=== PATIENT | female | born 1945 | race Caucasian/White ===

== ENCOUNTER → 2017-04-26 | Outpatient (CLI) | payer MEDICARE, OTHER ==
--- NOTE | 2017-04-26 20:57 | US ---
EXAMINATION TYPE: US abdomen complete DATE OF EXAM: 04/26/2017 COMPARISON: CT 2016 CLINICAL HISTORY: R10.2 pelvic and perineal pain. Intermittent pelvic burning sensation x 6 months, o ccasional N/V/D, history of cholecystectomy EXAM MEASUREMENTS: Liver Length: 16.5 cm Gallbladder Wall: surgically absent CBD: 0.4 cm Spleen: 9.7 cm Right Kidney: 11.7 x 5.2 x 5.9 cm Left Kidney: 11.7 x 5.5 x 5.5 cm Pancreas: obscured by overlying midline bowel gas Liver: increased echogenicity throughout, increased attenuation, limited by rib shadowing Gallbladder: surgically absent Evidence for sonographic Linares's sign: no CBD: visualized portions wnl, limited by overlying bowel gas Spleen: visualized portions wnl, limited by overlying bowel gas Right Kidney: 1.5 x 1.4 x 1.7cm cystic area inferior pole, 2.4cm cystic area mid pole, possible mild hydro vs. parapelvic cyst Left Kidney: no hydro or masses seen Upper IVC: wnl Abd Aorta: visualized portions wnl, partially obscured by overlying midline bowel gas IMPRESSION: 1. Exam limited due to patient body habitus and excessive bowel gas. 2. Limited portions visualized appear within normal limits. 3. Note is made of moderate fatty infiltration liver. 4. Mid right renal cyst.
--- NOTE | 2017-04-26 21:04 | US ---
EXAMINATION TYPE: US pelvis complete transvag DATE OF EXAM: 04/26/2017 COMPARISON: CT 2016 CLINICAL HISTORY: R10.2 pelvic and perineal pain. Intermittent pelvic burning sensation x couple femi hs, occasional N/V/D, history of tubal ligation, 3, para 3 TECHNIQUE: Transvaginal (TV) and Transabdominal (TA) Date of LMP: 20+ years ago EXAM MEASUREMENTS: Uterus: 5.6 x 2.5 x 3.6 cm Endometrial Stripe: 0.9 cm Right Ovary: not seen Left Ovary: not seen 1. Uterus: retroverted, heterogeneous with 1.0cm hypoechoic lesion seen left mid uterus and 0.5cm ec hogenic focus seen right mid uterus 2. Endometrium: heterogenous, thickened at 0.9cm 3. Right Ovary: not seen at this time 4. Left Ovary: not seen at this time 5. Bilateral Adnexa: wnl 6. Posterior cul-de-sac: wnl IMPRESSION: 1. Echogenic focus within the lateral right uterus could be a calcified fibroid. 2. Thickened endometrium.
== END | disposition home or self-care (01) ==
LOC: RADUSWWP 13:16
PROVIDERS: ATTEND Family Medicine
DX: N28.1 Cyst of kidney, acquired (principal); K76.0 Fatty (change of) liver, not elsewhere classified; R93.8 Abnormal findings on diagnostic imaging of other specified body structures
CPT/HCPCS: 76700; 76830; 76856

== ENCOUNTER 2020-09-24 17:04 | Inpatient (IN) | payer MEDICARE, OTHER ==
[2020-09-24] MEDS ORDERED: SODIUM CHLORIDE 0.9% 1,000 ML IV ONE (17:31)
[2020-09-24] MEDS ORDERED: ACETAMINOPHEN TAB 500 MG TAB PO STA (17:32)
--- NOTE | 2020-09-24 17:32 | ED ---
General Adult HPI - General Chief complaint: Abdominal Pain Stated complaint: abd pain Time Seen by Provider: 09/24/20 17:17 Source: patient, RN notes reviewed, old records reviewed Mode of arrival: ambulatory Limitations: no limitations - History of Present Illness Initial comments: 74-year-old female presenting with abdominal pain, predominantly left lower quadrant. This is been present for the past several days. She has noted fever at home. She's had significant nausea without vomiting. She has a previous surgical history of cholecystectomy. She has had a normal bowel movement no diarrhea. She has history of irritable bowel syndrome as well. - Related Data Home Medications Medication Instructions Recorded Confirmed Amitriptyline HCl 50 mg PO HS 06/16/15 09/24/20 Aspirin EC [Ecotrin Low Dose] 81 mg PO HS 09/24/20 09/24/20 Carboxymethylcell/Glycerin/Pf 1 drop BOTH EYES TID 09/24/20 09/24/20 [Refresh Relieva Pf 0.5-1% Drop] Cholecalciferol [Vitamin D3 (25 25 mcg PO HS 09/24/20 09/24/20 Mcg = 1000 Iu)] Cyanocobalamin (Vitamin B-12) 1,000 mcg PO DAILY 09/24/20 09/24/20 [Vitamin B-12] INSULIN ASPART (NovoLOG) [NovoLOG See Protocol SQ AC-TID 09/24/20 09/24/20 (formulary)] Insulin Degludec [Tresiba 50 units SQ HS 09/24/20 09/24/20 Flextouch U-100] Ketorolac 0.5% Ophth Soln [Acular] 1 drops BOTH EYES DAILY 09/24/20 09/24/20 Latanoprost/Pf [Latanoprost 0.005% 1 drop BOTH EYES HS 09/24/20 09/24/20 Eye Drop] Omeprazole 20 mg PO DAILY PRN 09/24/20 09/24/20 [id number] Acid 1 cap PO DAILY 09/24/20 09/24/20 [-U Capsule (formulary)] Turmeric Root Extract [Turmeric] 500 mg PO DAILY 09/24/20 09/24/20 hydroCHLOROthiazide [Hydrodiuril] 12.5 mg PO HS 09/24/20 09/24/20 Allergies Allergy/AdvReac Type Severity Reaction Status Date / Time cephalexin monohydrate Allergy Unknown Verified 09/24/20 18:45 [From Keflex] codeine Allergy Unknown Verified 09/24/20 18:45 rofecoxib [From Vioxx] Allergy Unknown Verified 09/24/20 18:45 Review of Systems ROS Statement: Those systems with pertinent positive or pertinent negative responses have been documented in the HPI. ROS Other: All systems not noted in ROS Statement are negative. Past Medical History Past Medical History: Diabetes Mellitus, Fibromyalgia, GERD/Reflux, Hyperlipidemia, Hypertension Additional Past Medical History / Comment(s): 06/15/14 Pt presented to [facility] ER with diffuse abdominal pain, nausea/vomiting/weakness. Ptin was suprapubic. Pt had blood in her urine. She saw her PCP yesterday and was tx for UTI. She is being admitted with dehydration, UTI failed outpt tx, hypomagnesemia, hyponatremia, malnutrition. Other HX: NIDDM, hiatal hernia, bronchitis, kidney stones, past endometriosis-no longer a problem. History of Any Multi-Drug Resistant Organisms: None Reported Past Surgical History: Cholecystectomy, Tubal Ligation Additional Past Surgical History / Comment(s): 2005 EGD Past Anesthesia/Blood Transfusion Reactions: No Reported Reaction Past Psychological History: No Psychological Hx Reported Smoking Status: Never smoker Past Alcohol Use History: None Reported Past Drug Use History: None Reported - Past Family History Father Family Medical History: Cancer Additional Family Medical History / Comment(s): Father had esophageal cancer and at age 84 or 85 yrs. Mother Family Medical History: Congestive Heart Failure (CHF), Diabetes Mellitus Additional Family Medical History / Comment(s): Mother at age 86 yrs. General Exam Limitations: no limitations General appearance: alert, in no apparent distress Head exam: Present: atraumatic, normocephalic Eye exam: Present: normal appearance, PERRL ENT exam: Present: normal exam Neck exam: Present: normal inspection. Absent: tenderness, meningismus Respiratory exam: Present: normal lung sounds bilaterally. Absent: respiratory distress Cardiovascular Exam: Present: regular rate, normal rhythm GI/Abdominal exam: Present: soft, tenderness (Minimal bilateral lower quadrant tenderness, worse on the left, no rebound or guarding). Absent: distended Extremities exam: Present: normal inspection, normal capillary refill. Absent: pedal edema Back exam: Present: normal inspection, full ROM Neurological exam: Present: alert, oriented X3 Psychiatric exam: Present: normal affect, normal mood Skin exam: Present: warm, dry, intact. Absent: cyanosis, diaphoretic Course Vital Signs 09/24/20 09/24/20 09/24/20 17:12 18:14 19:27 Temperature 103.0 F H 101.1 F H Pulse Rate 100 91 Respiratory 18 18 Rate Blood Pressure 147/70 146/61 O2 Sat by Pulse 97 96 Oximetry Medical Decision Making - Medical Decision Making 74-year-old female with abdominal pain and fever. Patient is tender in the left lower quadrant and some minimal tenderness in the right lower quadrant. Workup is initiated. Patient has a normal white blood cell count, stable hemoglobin, normal electrolytes, urinalysis to show signs of UTI although probably not significant enough to cause fever of 103. CT shows diverticulosis without diverticulitis, there is trace amount of free fluid on the right side of the abdomen. Normal appendix. Uncertain if there is an early intra-abdominal infectious process however patient is started on antibiotics and will be admitted to internal medicine with general surgery on consult. I discussed case with both Dr. Shaikh and Dr. Hoffmann. - Lab Data Result diagrams: 09/24/20 17:32 09/24/20 17:32 Lab Results 09/24/20 09/24/20 09/24/20 Range/Units 17:32 17:32 17:32 WBC 4.6 (3.8-10.6) k/uL RBC 4.86 (3.80-5.40) m/uL Hgb 14.6 (11.4-16.0) gm/dL Hct 41.5 (34.0-46.0) % MCV 85.3 (80.0-100.0) fL MCH 29.9 (25.0-35.0) pg MCHC 35.1 (31.0-37.0) g/dL RDW 12.7 (11.5-15.5) % Plt Count 170 (150-450) k/uL MPV 7.3 Neutrophils % 68 % Lymphocytes % 16 % Monocytes % 11 % Eosinophils % 0 % Basophils % 1 % Neutrophils # 3.1 (1.3-7.7) k/uL Lymphocytes # 0.7 L (1.0-4.8) k/uL Monocytes # 0.5 (0-1.0) k/uL Eosinophils # 0.0 (0-0.7) k/uL Basophils # 0.1 (0-0.2) k/uL PT 9.6 (9.0-12.0) sec INR 0.9 (<1.2) APTT 21.2 L (22.0-30.0) sec Sodium (137-145) mmol/L Potassium (3.5-5.1) mmol/L Chloride (98-107) mmol/L Carbon Dioxide (22-30) mmol/L Anion Gap mmol/L BUN (7-17) mg/dL Creatinine (0.52-1.04) mg/dL Est GFR (CKD-EPI)AfAm (>60 ml/min/1.73 sqM) Est GFR (CKD-EPI)NonAf (>60 ml/min/1.73 sqM) Glucose (74-99) mg/dL Plasma Lactic Acid Emmanuel (0.7-2.0) mmol/L Calcium (8.4-10.2) mg/dL Total Bilirubin (0.2-1.3) mg/dL AST (14-36) U/L ALT (4-34) U/L Alkaline Phosphatase (38-126) U/L Total Protein (6.3-8.2) g/dL Albumin (3.5-5.0) g/dL Amylase (30-110) U/L Lipase (23-300) U/L Urine Color Yellow Urine Appearance Cloudy H (Clear) Urine pH 6.0 (5.0-8.0) Ur Specific [place] 1.026 (1.001-1.035) Urine Protein 1+ H (Negative) Urine Glucose (UA) Trace H (Negative) Urine Ketones Negative (Negative) Urine Blood Negative (Negative) Urine Nitrite Negative (Negative) Urine Bilirubin Negative (Negative) Urine Urobilinogen <2.0 (<2.0) mg/dL Ur Leukocyte Esterase Large H (Negative) Urine RBC 5 (0-5) /hpf Urine WBC 27 H (0-5) /hpf Ur Squamous Epith Cells 4 (0-4) /hpf Hyaline Casts 11 H (0-2) /lpf Urine Mucus Rare H (None) /hpf 06/25/21 06/25/21 Range/Units 17:32 17:32 WBC (3.8-10.6) k/uL RBC (3.80-5.40) m/uL Hgb (11.4-16.0) gm/dL Hct (34.0-46.0) % MCV (80.0-100.0) fL MCH (25.0-35.0) pg MCHC (31.0-37.0) g/dL RDW (11.5-15.5) % Plt Count (150-450) k/uL MPV Neutrophils % % Lymphocytes % % Monocytes % % Eosinophils % % Basophils % % Neutrophils # (1.3-7.7) k/uL Lymphocytes # (1.0-4.8) k/uL Monocytes # (0-1.0) k/uL Eosinophils # (0-0.7) k/uL Basophils # (0-0.2) k/uL PT (9.0-12.0) sec INR (<1.2) APTT (22.0-30.0) sec Sodium 134 L (137-145) mmol/L Potassium 4.5 (3.5-5.1) mmol/L Chloride 102 (98-107) mmol/L Carbon Dioxide 21 L (22-30) mmol/L Anion Gap 11 mmol/L BUN 11 (7-17) mg/dL Creatinine 0.76 (0.52-1.04) mg/dL Est GFR (CKD-EPI)AfAm >90 (>60 ml/min/1.73 sqM) Est GFR (CKD-EPI)NonAf 79 (>60 ml/min/1.73 sqM) Glucose 158 H (74-99) mg/dL Plasma Lactic Acid Emmanuel 0.8 (0.7-2.0) mmol/L Calcium 9.5 (8.4-10.2) mg/dL Total Bilirubin 0.7 (0.2-1.3) mg/dL AST 41 H (14-36) U/L ALT 32 (4-34) U/L Alkaline Phosphatase 82 (38-126) U/L Total Protein 7.3 (6.3-8.2) g/dL Albumin 4.6 (3.5-5.0) g/dL Amylase 76 (30-110) U/L Lipase 135 (23-300) U/L Urine Color Urine Appearance (Clear) Urine pH (5.0-8.0) Ur Specific [place] (1.001-1.035) Urine Protein (Negative) Urine Glucose (UA) (Negative) Urine Ketones (Negative) Urine Blood (Negative) Urine Nitrite (Negative) Urine Bilirubin (Negative) Urine Urobilinogen (<2.0) mg/dL Ur Leukocyte Esterase (Negative) Urine RBC (0-5) /hpf Urine WBC (0-5) /hpf Ur Squamous Epith Cells (0-4) /hpf Hyaline Casts (0-2) /lpf Urine Mucus (None) /hpf Disposition Clinical Impression: UTI (urinary tract infection), Abdominal pain Disposition: ADMITTED IP TO THIS [facility] Condition: Stable Is patient prescribed a controlled substance at d/c from ED?: No Referrals: Aishwarya Lyon MD [Primary Care Provider] - 1-2 days Decision to Admit Reason: Admit from EC Decision Date: 09/24/20 Decision Time: 19:32
[2020-09-24 17:58] LABS: ALT 32 U/L (4-34); AST 41 U/L (14-36); African American GFR (CKD) >90 (>60 ml/min/1.73 sqM); Albumin 4.6 g/dL (3.5-5.0); Alkaline Phosphatase 82 U/L (38-126); Amylase 76 U/L (30-110); Anion Gap 11 mmol/L; Blood Urea Nitrogen 11 mg/dL (7-17); Calcium 9.5 mg/dL (8.4-10.2); Carbon Dioxide 21 mmol/L (22-30); Chloride 102 mmol/L (98-107); Glucose 158 mg/dL (74-99); Lipase 135 U/L (23-300); Non-African American GFR(CKD) 79 (>60 ml/min/1.73 sqM); Potassium 4.5 mmol/L (3.5-5.1); Sodium 134 mmol/L (137-145); Total Bilirubin 0.7 mg/dL (0.2-1.3); Total Protein 7.3 g/dL (6.3-8.2)
[2020-09-24 18:01] LABS: Appearance,Urine Cloudy (Clear); Bilirubin,Urine Negative (Negative); Blood,Urine Negative (Negative); Color,Urine Yellow; Glucose,Urine (UA) Trace (Negative); Hyaline Casts,Urine 11 /lpf (0-2); Ketones,Urine Negative (Negative); Leukocyte Esterase,Urine Large (Negative); Mucus,Urine Rare /hpf; Nitrite,Urine Negative (Negative); Protein,Urine 1+ (Negative); RBC,Urine 5 /hpf (0-5); Specific Gravity,Urine 1.026 (1.001-1.035); Squamous Epithelial Cell,Urine 4 /hpf (0-4); Urobilinogen,Urine <2.0 mg/dL (<2.0); WBC,Urine 27 /hpf (0-5)
[2020-09-24 18:12] LABS: Basophils # (A) 0.1 k/uL (0-0.2); Basophils % (A) 1 %; Eosinophils % (A) 0 %; HCT 41.5 % (34.0-46.0); HGB 14.6 gm/dL (11.4-16.0); Lymphocytes # (A) 0.7 k/uL (1.0-4.8); Lymphocytes % (A) 16 %; MCH 29.9 pg (25.0-35.0); MCHC 35.1 g/dL (31.0-37.0); MCV 85.3 fL (80.0-100.0); Mean Platelet Volume 7.3; Monocytes # (A) 0.5 k/uL (0-1.0); Monocytes % (A) 11 %; Neutrophils # (A) 3.1 k/uL (1.3-7.7); Neutrophils % (A) 68 %; Platelet Count 170 k/uL (150-450); RBC 4.86 m/uL (3.80-5.40); RDW 12.7 % (11.5-15.5); WBC 4.6 k/uL (3.8-10.6)
[2020-09-24 18:13] LABS: INR 0.9 (<1.2); Prothrombin Time 9.6 sec (9.0-12.0)
[2020-09-24 18:14] LABS: Partial Thromboplastin Time 21.2 sec (22.0-30.0)
--- NOTE | 2020-09-24 18:43 | CT ---
EXAMINATION TYPE: CT abdomen pelvis w con DATE OF EXAM: 09/24/2020 COMPARISON: 06/16/2015 HISTORY: LLQ and Back pain. CT DLP: 872.2 mGycm Automated exposure control for dose reduction was used. CONTRAST: Performed with IV Contrast, patient injected with 100 mL of Isovue 300. Lung bases are clear. There is no pleural effusion. Heart size is normal. There is no pericardial eff usion. Liver spleen stomach pancreas appear intact. The bile ducts are not dilated. There is no adrenal mass. Kidneys show satisfactory contrast opacification. There is no hydronephrosi s. The ureters are not dilated. There is no retroperitoneal adenopathy. The delayed images show maya l renal excretion. The bladder distends smoothly. There is no inguinal hernia. There is very small am ount of fluid in the pelvis on the right side. This has low attenuation. Uterus is retroverted. There is no pelvic mass. Appendix is posterior and appears normal. There is no mesenteric edema. There is no ascites or free a ir. There is no bowel obstruction. The lumbar vertebra have normal alignment. There is no compression fracture. Disc spaces are fairly n ormal. The bony pelvis is intact. The hip joints are intact. There is some posterior calcified disc herniation at L3-4 with encroachment on the spinal canal. Ther e is similar smaller disc herniation at L2-3. IMPRESSION: There is tiny amount of fluid in the pelvis on the right side of uncertain significance. No renal sto ne or obstruction. Normal appendix. There is sigmoid diverticulosis without diverticulitis. There is posterior calcified disc herniations with some spinal stenosis at L3-4.
[2020-09-24] MEDS ORDERED: PIPERACILLIN-TAZOBACTAM 3.375 GM in SODIUM CHLORIDE 0.9% 100 ML IVPB STA (18:51)
[2020-09-24] MEDS: SODIUM CHLORIDE 0.9% 1,000 ML IV SCH (19:23)
[2020-09-24] MEDS ORDERED: NALOXONE 0.4 MG/ML 1 ML VIAL IV PRN (19:28)
[2020-09-24] MEDS ORDERED: PANTOPRAZOLE 40 MG TABLET PO PRN (21:58)
[2020-09-24 22:37] LABS: Glucose,Whole Blood 295 mg/dL (75-99)
[2020-09-24] MEDS: INSULIN DETEMIR (LEVEMIR) 100 UNIT/ML SYR SQ SCH (22:43)
[2020-09-24] MEDS: AMITRIPTYLINE HCL 50 MG TAB PO SCH (22:44)
[2020-09-24] MEDS: ARTIFICIAL TEARS-HYPROMELLOSE DROPS 15 ML BTL BOTH EYES SCH (22:44)
[2020-09-24] MEDS: TEMAZEPAM 15 MG CAP PO PRN (23:16)
[2020-09-25] MEDS: ALPRAZolam 0.25 MG TAB PO PRN ×2 (00:17→21:37)
[2020-09-25 00:21] LABS: Glucose,Whole Blood 232 mg/dL (75-99)
[2020-09-25] MEDS: PIPERACILLIN-TAZOBACTAM 3.375 GM in SODIUM CHLORIDE 0.9% 100 ML IVPB SCH ×3 (04:02→21:36)
--- NOTE | 2020-09-25 06:33 | HP ---
HISTORY AND PHYSICAL DATE OF SERVICE: 09/24/2020 CHIEF COMPLAINT: Abdominal pain. HISTORY OF PRESENT ILLNESS: This 74-year-old woman with a past medical history of multiple medical problems including diabetes mellitus, fibromyalgia, GERD, hypertension, hyperlipidemia, being followed by Dr. Lyon in the outpatient setting previously had evidence of abdominal pain and UTI with sepsis about several years ago. The patient is in between ( ) apparently rectal prolapse with no abdominal pain, but today the patient is complaining of abdominal pain which is felt in the left lower quadrant which has been present for several days. The patient also feeling some fever. Nausea without any vomiting. The patient also complaining of some back pain and neck pain and the patient came to [facility] and was admitted for evaluation and treatment. The CBC was within normal limits. Some mild lymphopenia was noted. Sodium was 134. COVID-19 was negative. Patient has evidence of UTI. A CT scan of the abdomen and pelvis was also done which was reviewed personally by me, showed a tiny amount of fluid in the pelvis on the right side of uncertain significance. No renal stone or obstruction. There is sigmoid diverticulosis without and acute diverticulitis. Posterior calcified disk herniation with some spinal stenosis at L3-4 also noted. The patient was admitted for further evaluation and treatment. There is no history of fever, rigors. No headache, loss of consciousness, seizures. PAST HISTORY: Diabetes, fibromyalgia, GERD, hypertension, hyperlipidemia. MEDICATIONS: Home medications are turmeric extract, vitamin D3, vitamins, vitamin B12, Refresh, Ecotrin, HydroDIURIL, omeprazole, ( ), amitriptyline, NovoLog and ( ). ALLERGIES: CEPHALEXIN, CODEINE AND VIOXX. FAMILY HISTORY: History of cancer, esophageal cancer in the family. SOCIAL HISTORY: Previous history of smoking. No history of current smoking or alcohol intake. REVIEW OF SYSTEMS: ENT No history of diminished hearing or vision. CARDIOVASCULAR No angina or palpitations. RESPIRATORY As mentioned earlier. GI As mentioned earlier. No dysuria or hematuria. NERVOUS No numbness or weakness. ALLERGY/IMMUNOLOGY No asthma or hayfever. MUSCULOSKELETAL As mentioned earlier. HEMATOLOGY/ONCOLOGY Negative. ENDOCRINE Diabetes.. CONSTITUTIONAL As mentioned earlier. DERMATOLOGY Negative. RHEUMATOLOGY Negative, PSYCHIATRY As mentioned earlier. PHYSICAL EXAMINATION: The patient is alert and oriented x3. Pulse is 100, blood pressure 147/72, respiration 18, temperature 103, pulse ox 97% on room air. HEENT: Conjunctivae normal. Oral mucosa moist. NECK: No jugular venous distention. No lymph node enlargement. CARDIOVASCULAR: S1, S2, muffled. No S3, no S4, RESPIRATORY: Diminished breath sounds at the bases. No rhonchi, no crackles. ABDOMEN: Soft. Mild diffuse tenderness is present. Otherwise, no mass palpable in the lower part. No guarding, no rigidity. Bowel sounds present. No ascites. LEGS: No edema, no swelling. NERVOUS SYSTEM: Higher functions mentioned earlier. Moves all four limbs. No focal motor or sensory deficits. LYMPHATICS: No lymph node in neck or axilla. SKIN: No rash. JOINTS: No active deforming arthropathy. LABS: WBC 4.6, sodium is 134, glucose is 158. COVID-19 is negative. Urine noted. ASSESSMENT: 1. Possible diverticulitis. 2. Lower abdominal pain with acute UTI with possible sepsis present on admission, early sepsis. 3. Hyponatremia. 4. Elevated AST. 5. Diabetes mellitus type 2 history. 6. Fibromyalgia. 7. GERD. 8. Hypertension. 9. Hyperlipidemia. 10.History of rectal prolapse. 11.History of urinary tract infection with sepsis previously. 12.History of small amount of fluid in the pelvis. 13.History of multiple electrolyte abnormalities. 14.Previous history of cholecystectomy. 15.FULL CODE. RECOMMENDATIONS AND DISCUSSION: In this 74-year-old woman who presented with multiple complex medical issues, we will monitor the patient closely. Patient started on broad spectrum IV antibiotics. I recommend surgical consultation. Empiric antibiotics. Follow the cultures. Resume the home medications. DVT prophylaxis. Proton pump inhibitors. The prognosis is guarded. MMODL / IJN: [id number] /
[2020-09-25 07:05] LABS: Glucose,Whole Blood 139 mg/dL (75-99)
[2020-09-25] MEDS: ACETAMINOPHEN TAB 325 MG TAB PO PRN ×2 (08:18→20:05)
[2020-09-25] MEDS: ARTIFICIAL TEARS-HYPROMELLOSE DROPS 15 ML BTL BOTH EYES SCH ×3 (08:18→21:43)
[2020-09-25] MEDS: HEPARIN SODIUM,PORCINE/PF 5,000 UNIT/0.5 ML SYRINGE SQ SCH ×2 (08:19→20:05)
[2020-09-25] MEDS: CYANOCOBALAMIN 500 MCG TAB PO SCH (08:20)
[2020-09-25] MEDS: SODIUM CHLORIDE 0.9% 1,000 ML IV SCH ×2 (08:21→21:42)
[2020-09-25] MEDS: KETOROLAC 0.5% OPHTH DROPS 5 ML BTL BOTH EYES SCH (08:21)
[2020-09-25 09:19] LABS: Basophils # (A) 0.01 X 10*3/uL (0.00-0.10); Basophils % (A) 0.3 %; Eosinophils # (A) 0 X 10*3/uL (0.04-0.35); Eosinophils % (A) 0 %; HCT 35.1 % (37.2-46.3); HGB 11.9 g/dL (12.0-15.0); Lymphocytes # (A) 0.52 X 10*3/uL (0.90-5.00); Lymphocytes % (A) 13.5 %; MCH 29.4 pg (27.0-32.0); MCHC 33.9 g/dL (32.0-37.0); MCV 86.7 fL (80.0-97.0); Mean Platelet Volume 10.1 fL (9.5-12.2); Monocytes % (A) 10.4 %; Neutrophils % (A) 75.5 %; Platelet Count 141 X 10*3/uL (140-440); RBC 4.05 X 10*6/uL (4.10-5.20); RDW 12.2 % (11.5-14.5); WBC 3.84 X 10*3/uL (4.50-10.00)
[2020-09-25 10:23] LABS: African American GFR (CKD) 84.8 (60.0-200.0); Albumin 3.7 g/dL (3.80-4.90); Albumin/Globulin Ratio 1.85 (1.60-3.17); Anion Gap 9.3 mmol/L (4.00-12.00); Carbon Dioxide 22.7 mmol/L (21.6-31.8); Magnesium 1.3 mg/dL (1.5-2.4); Non-African American GFR(CKD) 73.1 (60.0-200.0); Potassium 3.6 mmol/L (3.5-5.5); Total Bilirubin 0.7 mg/dL (0.2-1.2); Total Protein 5.7 g/dL (6.2-8.2)
[2020-09-25 11:55] LABS: Glucose,Whole Blood 181 mg/dL (75-99)
[2020-09-25] MEDS ORDERED: Potassium Replacement Protocol 1 EACH MISC MISCELLANE PRN (12:38)
[2020-09-25] MEDS ORDERED: Magnesium Replacement Protocol 1 EACH MISC MISCELLANE PRN (12:38)
--- NOTE | 2020-09-25 13:16 | P.GSCN ---
History of Present Illness Consult date: 09/25/20 History of present illness: This 74-year-old female presented a hospital with a chief complaint of abdominal pain. Suprapubic and left lower quadrant. She denies any nausea vomiting she denies any change in bowel movement. Her last bowel movement was several days ago however this is normal for her. She denies any other recent illness she denies any food out of the normal for her. No sick contacts. Past Medical History Past Medical History: Diabetes Mellitus, Fibromyalgia, GERD/Reflux, Hyperlipidemia, Hypertension Additional Past Medical History / Comment(s): 06/15/14 Pt presented to [facility] ER with diffuse abdominal pain, nausea/vomiting/weakness. Ptin was suprapubic. Pt had blood in her urine 5 years ago . She saw her PCP yesterday and was tx for UTI. She is being admitted with dehydration, UTI failed outpt tx, hypomagnesemia, hyponatremia, malnutrition. Other HX: NIDDM, hiatal hernia, bronchitis, kidney stones, past endometriosis-no longer a problem. History of Any Multi-Drug Resistant Organisms: None Reported Past Surgical History: Cholecystectomy, Tubal Ligation Additional Past Surgical History / Comment(s): 2005 EGD Past Anesthesia/Blood Transfusion Reactions: No Reported Reaction Past Psychological History: No Psychological Hx Reported Additional Psychological History / Comment(s): Pt resides with her spouse. She is normally independent. She uses no assistive device. She drives. Smoking Status: Never smoker Past Alcohol Use History: None Reported Additional Past Alcohol Use History / Comment(s): Pt started smoking about 1965 and quit about 1980 Past Drug Use History: None Reported - Past Family History Father Family Medical History: Cancer Additional Family Medical History / Comment(s): Father had esophageal cancer and at age 84 or 85 yrs. Mother Family Medical History: Congestive Heart Failure (CHF), Diabetes Mellitus Additional Family Medical History / Comment(s): Mother at age 86 yrs. Medications and Allergies Home Medications Medication Instructions Recorded Confirmed Type Amitriptyline HCl 50 mg PO HS 06/16/15 09/24/20 History Aspirin EC [Ecotrin Low Dose] 81 mg PO HS 09/24/20 09/24/20 History Carboxymethylcell/Glycerin/Pf 1 drop BOTH EYES TID 09/24/20 09/24/20 History [Refresh Relieva Pf 0.5-1% Drop] Cholecalciferol [Vitamin D3 (25 25 mcg PO HS 09/24/20 09/24/20 History Mcg = 1000 Iu)] Cyanocobalamin (Vitamin B-12) 1,000 mcg PO DAILY 09/24/20 09/24/20 History [Vitamin B-12] INSULIN ASPART (NovoLOG) [NovoLOG See Protocol SQ AC-TID 09/24/20 09/24/20 History (formulary)] Insulin Degludec [Tresiba 50 units SQ HS 09/24/20 09/24/20 History Flextouch U-100] Ketorolac 0.5% Ophth Soln [Acular] 1 drops BOTH EYES DAILY 09/24/20 09/24/20 History Latanoprost/Pf [Latanoprost 0.005% 1 drop BOTH EYES HS 09/24/20 09/24/20 History Eye Drop] Omeprazole 20 mg PO DAILY PRN 09/24/20 09/24/20 History Cji-Pyyk-Kvrph Acid 1 cap PO DAILY 09/24/20 09/24/20 History [-U Capsule (formulary)] Turmeric Root Extract [Turmeric] 500 mg PO DAILY 09/24/20 09/24/20 History hydroCHLOROthiazide [Hydrodiuril] 12.5 mg PO HS 09/24/20 09/24/20 History Allergies Allergy/AdvReac Type Severity Reaction Status Date / Time cephalexin monohydrate Allergy Unknown Verified 09/24/20 18:45 [From Keflex] codeine Allergy Unknown Verified 09/24/20 18:45 rofecoxib [From Vioxx] Allergy Unknown Verified 09/24/20 18:45 Surgical - Exam Osteopathic Statement: *. No significant issues noted on an osteopathic structural exam other than those noted in the History and Physical/Consult. Vital Signs Temp Pulse Resp BP Pulse Ox 103.0 F H 100 18 147/70 97 09/24/20 17:12 09/24/20 17:12 09/24/20 17:12 09/24/20 17:12 09/24/20 17:12 - General well developed, well nourished, no distress - Abdomen Nontender nondistended Abdomen: soft - Psychiatric oriented to time, oriented to person, oriented to place Results - Labs 09/25/20 05:36 09/25/20 05:36 Abnormal Lab Results - Last 24 Hours (Table) 09/24/20 09/24/20 09/24/20 Range/Units 17:32 17:32 17:32 WBC (4.50-10.00) X 10*3/uL RBC (4.10-5.20) X 10*6/uL Hgb (12.0-15.0) g/dL Hct (37.2-46.3) % Lymphocytes # 0.7 L (1.0-4.8) k/uL Eosinophils # (0.04-0.35) X 10*3/uL APTT 21.2 L (22.0-30.0) sec Sodium (137-145) mmol/L Carbon Dioxide (22-30) mmol/L Glucose (74-99) mg/dL POC Glucose (mg/dL) (75-99) mg/dL Calcium (8.7-10.3) mg/dL Magnesium (1.5-2.4) mg/dL AST (14-36) U/L Total Protein (6.2-8.2) g/dL Albumin (3.80-4.90) g/dL Urine Appearance Cloudy H (Clear) Urine Protein 1+ H (Negative) Urine Glucose (UA) Trace H (Negative) Ur Leukocyte Esterase Large H (Negative) Urine WBC 27 H (0-5) /hpf Hyaline Casts 11 H (0-2) /lpf Urine Mucus Rare H (None) /hpf 09/24/20 09/24/20 09/25/20 Range/Units 17:32 22:35 00:12 WBC (4.50-10.00) X 10*3/uL RBC (4.10-5.20) X 10*6/uL Hgb (12.0-15.0) g/dL Hct (37.2-46.3) % Lymphocytes # (1.0-4.8) k/uL Eosinophils # (0.04-0.35) X 10*3/uL APTT (22.0-30.0) sec Sodium 134 L (137-145) mmol/L Carbon Dioxide 21 L (22-30) mmol/L Glucose 158 H (74-99) mg/dL POC Glucose (mg/dL) 295 H 232 H (75-99) mg/dL Calcium (8.7-10.3) mg/dL Magnesium (1.5-2.4) mg/dL AST 41 H (14-36) U/L Total Protein (6.2-8.2) g/dL Albumin (3.80-4.90) g/dL Urine Appearance (Clear) Urine Protein (Negative) Urine Glucose (UA) (Negative) Ur Leukocyte Esterase (Negative) Urine WBC (0-5) /hpf Hyaline Casts (0-2) /lpf Urine Mucus (None) /hpf 09/25/20 09/25/20 09/25/20 Range/Units 05:36 05:36 07:04 WBC 3.84 L (4.50-10.00) X 10*3/uL RBC 4.05 L (4.10-5.20) X 10*6/uL Hgb 11.9 L (12.0-15.0) g/dL Hct 35.1 L (37.2-46.3) % Lymphocytes # 0.52 L (1.0-4.8) k/uL Eosinophils # 0 L (0.04-0.35) X 10*3/uL APTT (22.0-30.0) sec Sodium (137-145) mmol/L Carbon Dioxide (22-30) mmol/L Glucose 163 H (74-99) mg/dL POC Glucose (mg/dL) 139 H (75-99) mg/dL Calcium 8.0 L (8.7-10.3) mg/dL Magnesium 1.3 L (1.5-2.4) mg/dL AST (14-36) U/L Total Protein 5.7 L (6.2-8.2) g/dL Albumin 3.70 L (3.80-4.90) g/dL Urine Appearance (Clear) Urine Protein (Negative) Urine Glucose (UA) (Negative) Ur Leukocyte Esterase (Negative) Urine WBC (0-5) /hpf Hyaline Casts (0-2) /lpf Urine Mucus (None) /hpf 09/25/20 Range/Units 11:53 WBC (4.50-10.00) X 10*3/uL RBC (4.10-5.20) X 10*6/uL Hgb (12.0-15.0) g/dL Hct (37.2-46.3) % Lymphocytes # (1.0-4.8) k/uL Eosinophils # (0.04-0.35) X 10*3/uL APTT (22.0-30.0) sec Sodium (137-145) mmol/L Carbon Dioxide (22-30) mmol/L Glucose (74-99) mg/dL POC Glucose (mg/dL) 181 H (75-99) mg/dL Calcium (8.7-10.3) mg/dL Magnesium (1.5-2.4) mg/dL AST (14-36) U/L Total Protein (6.2-8.2) g/dL Albumin (3.80-4.90) g/dL Urine Appearance (Clear) Urine Protein (Negative) Urine Glucose (UA) (Negative) Ur Leukocyte Esterase (Negative) Urine WBC (0-5) /hpf Hyaline Casts (0-2) /lpf Urine Mucus (None) /hpf Microbiology - Last 24 Hours (Table) 09/24/20 17:32 Urine Culture - Preliminary Urine,Voided Diabetes panel 09/24/20 09/25/20 Range/Units 17:32 05:36 Sodium 134 L 135 (137-145) mmol/L Potassium 4.5 3.6 (3.5-5.1) mmol/L Chloride 102 103 (98-107) mmol/L Carbon Dioxide 21 L 22.7 (22-30) mmol/L BUN 11 12.0 (7-17) mg/dL Creatinine 0.76 0.8 (0.52-1.04) mg/dL Glucose 158 H 163 H (74-99) mg/dL Calcium 9.5 8.0 L (8.4-10.2) mg/dL AST 41 H 30 (14-36) U/L ALT 32 30 (4-34) U/L Alkaline Phosphatase 82 71 (38-126) U/L Total Protein 7.3 5.7 L (6.3-8.2) g/dL Albumin 4.6 3.70 L (3.5-5.0) g/dL Calcium panel 09/24/20 09/25/20 Range/Units 17:32 05:36 Calcium 9.5 8.0 L (8.4-10.2) mg/dL Albumin 4.6 3.70 L (3.5-5.0) g/dL Pituitary panel 09/24/20 09/25/20 Range/Units 17:32 05:36 Sodium 134 L 135 (137-145) mmol/L Potassium 4.5 3.6 (3.5-5.1) mmol/L Chloride 102 103 (98-107) mmol/L Carbon Dioxide 21 L 22.7 (22-30) mmol/L BUN 11 12.0 (7-17) mg/dL Creatinine 0.76 0.8 (0.52-1.04) mg/dL Glucose 158 H 163 H (74-99) mg/dL Calcium 9.5 8.0 L (8.4-10.2) mg/dL Adrenal panel 09/24/20 09/25/20 Range/Units 17:32 05:36 Sodium 134 L 135 (137-145) mmol/L Potassium 4.5 3.6 (3.5-5.1) mmol/L Chloride 102 103 (98-107) mmol/L Carbon Dioxide 21 L 22.7 (22-30) mmol/L BUN 11 12.0 (7-17) mg/dL Creatinine 0.76 0.8 (0.52-1.04) mg/dL Glucose 158 H 163 H (74-99) mg/dL Calcium 9.5 8.0 L (8.4-10.2) mg/dL Total Bilirubin 0.7 0.7 (0.2-1.3) mg/dL AST 41 H 30 (14-36) U/L ALT 32 30 (4-34) U/L Alkaline Phosphatase 82 71 (38-126) U/L Total Protein 7.3 5.7 L (6.3-8.2) g/dL Albumin 4.6 3.70 L (3.5-5.0) g/dL Assessment and Plan Assessment: Abdominal pain UTI Plan: Patient has somewhat improved symptoms. On computed tomography scan there is no acute intra-abdominal abnormality seen. No plans for any surgical intervention no signs of diverticulitis. Antibiotics per primary for UTI.
[2020-09-25] MEDS: MAGNESIUM SULFATE-D5W PMX 1 GM in DEXTROSE/WATER 1 100ML.BAG IVPB SCH ×3 (16:19→20:03)
[2020-09-25 17:27] LABS: Glucose,Whole Blood 199 mg/dL (75-99)
[2020-09-25] MEDS: CHOLECALCIFEROL 25 MCG (1000 IU) TABLET PO SCH (20:05)
[2020-09-25] MEDS: ASPIRIN 81 MG PO SCH (20:06)
[2020-09-25 20:27] LABS: Glucose,Whole Blood 245 mg/dL (75-99)
--- NOTE | 2020-09-25 21:13 | PN ---
PROGRESS NOTE DATE OF SERVICE: 09/25/2020. INTERVAL HISTORY: This 74-year-old woman who was admitted with lower abdomen pain, fever, is being empirically treated for diverticulitis at this time. No chest pain. No palpitations. Patient is still complaining of abdominal pain. Surgery has seen the patient and is planning no surgical intervention at this time. No chest pain. No palpitations. No fever. PHYSICAL EXAMINATION: Alert, attentive. Pulse 77, blood pressure 108/60, respiration 18, temperature 99.7, pulse ox 98% on room air. HEENT: Neck: No JVD. CARDIOVASCULAR: S1, S2 muffled. RESPIRATION: Breath sounds diminished in the bases, no rhonchi, no crackles. ABDOMEN: Soft mild diffuse discomfort on lower part of the abdomen. No guarding. There is no mass. LEGS: No edema. No swelling. LABS: WBC 3.85, hemoglobin 10.9, and magnesium 1.3. ASSESSMENT: 1. Lower abdominal pain with acute UTI with possible sepsis present on admission with early sepsis. 2. Possible acute diverticulitis. 3. Hyponatremia. 4. Elevated AST. 5. Diabetes type 2, history. 6. Fibromyalgia. 7. Gastroesophageal reflux disease. 8. Hypomagnesemia. 9. Hypertension. 10.Hyperlipidemia. 11.History of rectal prolapse. 12.History of urinary UTI and sepsis previously. 13.History of small amount of fluid in the pelvis. 14.History of multiple electrolyte abnormalities. 15.Previous history of cholecystitis. 16.FULL CODE. RECOMMENDATIONS: Continue current management and symptomatic treatment. Otherwise, at this time I would recommend for continued IV antibiotics, closely follow with surgery. Guarded prognosis. Further recommendations to follow. MMODL / IJN: [id number] /
[2020-09-25] MEDS: INSULIN DETEMIR (LEVEMIR) 100 UNIT/ML SYR SQ SCH (21:37)
[2020-09-25] MEDS: TEMAZEPAM 15 MG CAP PO PRN (21:37)
[2020-09-25] MEDS: hydroCHLOROthiazide 12.5 MG CAP PO SCH (21:37)
[2020-09-25] MEDS: AMITRIPTYLINE HCL 50 MG TAB PO SCH (21:38)
[2020-09-25] MEDS: LATANOPROST 0.005% OPHTH DROPS 2.5 ML BTL BOTH EYES SCH (21:41)
[2020-09-26] MEDS: PIPERACILLIN-TAZOBACTAM 3.375 GM in SODIUM CHLORIDE 0.9% 100 ML IVPB SCH ×3 (03:58→21:49)
[2020-09-26 07:06] LABS: Glucose,Whole Blood 100 mg/dL (75-99)
[2020-09-26] MEDS: CYANOCOBALAMIN 500 MCG TAB PO SCH (09:30)
[2020-09-26] MEDS: KETOROLAC 0.5% OPHTH DROPS 5 ML BTL BOTH EYES SCH (09:31)
[2020-09-26] MEDS: ARTIFICIAL TEARS-HYPROMELLOSE DROPS 15 ML BTL BOTH EYES SCH ×3 (09:31→21:53)
[2020-09-26] MEDS: HEPARIN SODIUM,PORCINE/PF 5,000 UNIT/0.5 ML SYRINGE SQ SCH ×2 (09:33→21:51)
[2020-09-26 11:24] LABS: African American GFR (CKD) >90 (>60 ml/min/1.73 sqM); Anion Gap 5 mmol/L; Blood Urea Nitrogen 9 mg/dL (7-17); Calcium 8.4 mg/dL (8.4-10.2); Carbon Dioxide 23 mmol/L (22-30); Chloride 110 mmol/L (98-107); Glucose 150 mg/dL (74-99); Non-African American GFR(CKD) 87 (>60 ml/min/1.73 sqM); Potassium 3.6 mmol/L (3.5-5.1); Sodium 138 mmol/L (137-145)
[2020-09-26 11:43] LABS: Basophils % (A) 1 %; Eosinophils # (A) 0.1 k/uL (0-0.7); Eosinophils % (A) 4 %; HCT 34.2 % (34.0-46.0); HGB 11.9 gm/dL (11.4-16.0); Lymphocytes # (A) 0.8 k/uL (1.0-4.8); Lymphocytes % (A) 36 %; MCH 30.1 pg (25.0-35.0); MCHC 34.8 g/dL (31.0-37.0); MCV 86.6 fL (80.0-100.0); Mean Platelet Volume 8.1; Monocytes # (A) 0.3 k/uL (0-1.0); Monocytes % (A) 15 %; Neutrophils # (A) 0.7 k/uL (1.3-7.7); Neutrophils % (A) 35 %; Platelet Count 138 k/uL (150-450); RBC 3.95 m/uL (3.80-5.40); RDW 12.7 % (11.5-15.5); WBC 2.1 k/uL (3.8-10.6)
[2020-09-26 11:56] LABS: Glucose,Whole Blood 123 mg/dL (75-99)
[2020-09-26] MEDS: SODIUM CHLORIDE 0.9% 1,000 ML IV SCH ×2 (12:26→16:55)
[2020-09-26 12:33] LABS: Eosinophils # (M) 0.13 k/uL (0-0.7); Monocytes # (M) 0.29 k/uL (0-1.0); Neutrophils # (M) 0.88 k/uL (1.3-7.7); Neutrophils % (M) 42 %; Nucleated Red Blood Cells 0 /100 WBC (0-0); Total Cells Counted 100
--- NOTE | 2020-09-26 17:04 | PN ---
PROGRESS NOTE DATE OF SERVICE: 09/26/2020 This 74-year-old woman who was admitted with lower abdominal pain also had possible UTI and as well as diverticulitis, also. The patient is on empiric antibiotics. Patient still complains of abdominal pain. The white count is 2.1. No chest pain. No palpitations. Magnesium is improved. The cultures are negative. PHYSICAL EXAMINATION: Alert and oriented x2. Pulse 86, blood pressure 127/66, respiration 18, temperature 98.1, pulse ox 98% on room air. HEENT: Conjunctivae normal. Oral mucosa moist. NECK: No jugular venous distention. No lymph node enlargement. CARDIOVASCULAR: S1, S2, muffled. No S3, no S4, RESPIRATORY: Diminished breath sounds at the bases. ABDOMEN: Soft. Mild diffuse tenderness present. LEGS: No edema, no swelling. NERVOUS SYSTEM: No focal deficits. LAB STUDIES: WBC ( ), platelets 138. Other labs are noted. ASSESSMENT: 1. Lower abdominal pain with acute UTI with possible sepsis, present on admission with early sepsis. 2. Possible acute diverticulitis. 3. Hyponatremia. 4. Leukopenia. 5. Elevated AST. 6. Diabetes mellitus type 2 history. 7. Fibromyalgia. 8. History of GERD. 9. Hypomagnesemia. 10.Hypertension. 11.Possible fluid in the pelvis in the CT scan. 12.Hyperlipidemia. 13.History of rectal prolapse. 14.History of urinary tract infection and sepsis previously. 15.History of multiple electrolyte abnormalities. 16.Previous history of cholecystitis. 17.FULL CODE. RECOMMENDATIONS: Recommend to continue current management and symptomatic treatment. Continue with broad-spectrum IV antibiotics. Follow the cultures. Otherwise, follow closely with surgery. Stop the IV fluids. I would also recommend close followup with Dr. Lyon in the outpatient setting. Discussed with Dr. Lyon. Plan repeat CT scan or, if symptomatic, even MRI scan as an outpatient of the abdomen. MMODL / IJN: [id number] /
[2020-09-26 17:17] LABS: Glucose,Whole Blood 215 mg/dL (75-99)
[2020-09-26 20:48] LABS: Glucose,Whole Blood 319 mg/dL (75-99)
[2020-09-26] MEDS: ASPIRIN 81 MG PO SCH (21:50)
[2020-09-26] MEDS: CHOLECALCIFEROL 25 MCG (1000 IU) TABLET PO SCH (21:50)
[2020-09-26] MEDS: TEMAZEPAM 15 MG CAP PO PRN (21:50)
[2020-09-26] MEDS: ALPRAZolam 0.25 MG TAB PO PRN (21:50)
[2020-09-26] MEDS: INSULIN DETEMIR (LEVEMIR) 100 UNIT/ML SYR SQ SCH (21:51)
[2020-09-26] MEDS: LATANOPROST 0.005% OPHTH DROPS 2.5 ML BTL BOTH EYES SCH (21:53)
[2020-09-26] MEDS: AMITRIPTYLINE HCL 50 MG TAB PO SCH (21:57)
[2020-09-26] MEDS: hydroCHLOROthiazide 12.5 MG CAP PO SCH (21:57)
[2020-09-27] MEDS: PIPERACILLIN-TAZOBACTAM 3.375 GM in SODIUM CHLORIDE 0.9% 100 ML IVPB SCH ×3 (04:37→19:53)
[2020-09-27 07:13] LABS: Glucose,Whole Blood 85 mg/dL (75-99)
[2020-09-27] MEDS: HEPARIN SODIUM,PORCINE/PF 5,000 UNIT/0.5 ML SYRINGE SQ SCH ×2 (07:40→19:56)
[2020-09-27] MEDS: CYANOCOBALAMIN 500 MCG TAB PO SCH (07:41)
[2020-09-27] MEDS: ARTIFICIAL TEARS-HYPROMELLOSE DROPS 15 ML BTL BOTH EYES SCH ×3 (07:41→22:34)
[2020-09-27] MEDS: KETOROLAC 0.5% OPHTH DROPS 5 ML BTL BOTH EYES SCH (07:41)
[2020-09-27 09:33] LABS: African American GFR (CKD) 99.6 (60.0-200.0); Anion Gap 9.7 mmol/L (4.00-12.00); BUN/Creat Ratio 14.29 Ratio (12.00-20.00); Calcium 8.6 mg/dL (8.7-10.3); Carbon Dioxide 24.3 mmol/L (21.6-31.8); Potassium 3.6 mmol/L (3.5-5.5)
[2020-09-27 11:04] LABS: Basophils # (A) 0.02 X 10*3/uL (0.00-0.10); Basophils % (A) 0.6 %; Eosinophils # (A) 0.21 X 10*3/uL (0.04-0.35); Eosinophils % (A) 6.6 %; HCT 33.5 % (37.2-46.3); HGB 11.1 g/dL (12.0-15.0); Lymphocytes # (A) 1.37 X 10*3/uL (0.90-5.00); Lymphocytes % (A) 42.9 %; MCH 28.8 pg (27.0-32.0); MCHC 33.1 g/dL (32.0-37.0); Mean Platelet Volume 10.6 fL (9.5-12.2); Monocytes # (A) 0.57 X 10*3/uL (0.20-1.00); Monocytes % (A) 17.9 %; Neutrophils # (A) 1.01 X 10*3/uL (1.80-7.70); Neutrophils % (A) 31.7 %; Platelet Count 96 X 10*3/uL (140-440); RBC 3.85 X 10*6/uL (4.10-5.20); RDW 12.3 % (11.5-14.5); WBC 3.19 X 10*3/uL (4.50-10.00)
[2020-09-27 11:26] LABS: Glucose,Whole Blood 231 mg/dL (75-99)
[2020-09-27 16:56] LABS: Glucose,Whole Blood 223 mg/dL (75-99)
--- NOTE | 2020-09-27 17:09 | PN ---
PROGRESS NOTE DATE OF SERVICE: 09/27/2020 INTERVAL HISTORY: This 74-year-old woman was admitted with lower abdominal pain, possible acute UTI with possible sepsis, is being evaluated. Patient is getting antibiotics. Cultures are negative so far. No chest pain. No palpitations. No fever. PHYSICAL EXAMINATION: Alert and oriented x3. Pulse is 65, blood pressure 116/62, respiration 19, temperature 97.4, pulse ox 98 percent on room air. HEENT: Conjunctivae normal. NECK: No JVD. CARDIOVASCULAR: S1, S2 muffled. RESPIRATION: Breath sounds diminished in the bases. No rhonchi. No crackles. ABDOMEN: Soft and nontender. No mass palpable. LEGS: No edema. No swelling. LABS: WBC 3.0, hemoglobin 11.1, platelets are 96. Calcium is 8.6. ASSESSMENT: 1. Lower abdominal pain with acute urinary tract infection with present on admission with early sepsis. 2. Possible acute diverticulitis. 3. Hyponatremia. 4. Leukopenia. 5. Small amount of fluid in the pelvis in the CT scan. 6. Elevated AST. 7. Diabetes mellitus type 2 history. 8. Fibromyalgia. 9. History of gastroesophageal reflux disease. 10.Hypomagnesemia. 11.Hypertension. 12.Mild pancytopenia. 13.Hyperlipidemia. 14.History of rectal prolapse. 15.History of urinary tract infection and sepsis previously. 16.History of multiple electrolytes abnormalities. 17.Previous history of cholecystectomy. 18.FULL CODE. RECOMMENDATIONS AND DISCUSSION: Recommend to continue current medications, management and symptomatic treatment. Otherwise repeat labs. Continue the antibiotics. Follow the cultures. Recommend close outpatient follow with Dr. Lyon for repeat CT scan and further workup in the outpatient. Discussed with the patient who understands and agrees. MMODL / IJN: [id number] / KLE[place]
[2020-09-27 19:57] LABS: Glucose,Whole Blood 233 mg/dL (75-99)
[2020-09-27] MEDS: INSULIN DETEMIR (LEVEMIR) 100 UNIT/ML SYR SQ SCH (20:09)
[2020-09-27] MEDS: CHOLECALCIFEROL 25 MCG (1000 IU) TABLET PO SCH (20:10)
[2020-09-27] MEDS: AMITRIPTYLINE HCL 50 MG TAB PO SCH (20:10)
[2020-09-27] MEDS: hydroCHLOROthiazide 12.5 MG CAP PO SCH (20:10)
[2020-09-27] MEDS: ASPIRIN 81 MG PO SCH (20:10)
[2020-09-27] MEDS: LATANOPROST 0.005% OPHTH DROPS 2.5 ML BTL BOTH EYES SCH (20:10)
[2020-09-27] MEDS: TEMAZEPAM 15 MG CAP PO PRN (22:39)
[2020-09-27] MEDS: ALPRAZolam 0.25 MG TAB PO PRN (22:39)
[2020-09-28] MEDS: PIPERACILLIN-TAZOBACTAM 3.375 GM in SODIUM CHLORIDE 0.9% 100 ML IVPB SCH ×2 (03:30→12:06)
[2020-09-28 03:35] VITALS: TEMP 97.6
[2020-09-28 03:35] LABS: Glucose,Whole Blood 112 mg/dL (75-99)
[2020-09-28 06:36] LABS: HCT 34.4 % (34.0-46.0); MCH 29.5 pg (25.0-35.0); MCHC 34.9 g/dL (31.0-37.0); MCV 84.6 fL (80.0-100.0); Mean Platelet Volume 7.6; Platelet Count 176 k/uL (150-450); RBC 4.07 m/uL (3.80-5.40); RDW 12.6 % (11.5-15.5); WBC 3.9 k/uL (3.8-10.6)
[2020-09-28 06:38] LABS: Glucose,Whole Blood 84 mg/dL (75-99)
[2020-09-28 06:51] LABS: African American GFR (CKD) >90 (>60 ml/min/1.73 sqM); Anion Gap 5 mmol/L; Blood Urea Nitrogen 14 mg/dL (7-17); Calcium 9.6 mg/dL (8.4-10.2); Carbon Dioxide 29 mmol/L (22-30); Chloride 107 mmol/L (98-107); Glucose 80 mg/dL (74-99); Non-African American GFR(CKD) 79 (>60 ml/min/1.73 sqM); Potassium 3.8 mmol/L (3.5-5.1); Sodium 141 mmol/L (137-145)
[2020-09-28 07:55] LABS: Band Neutrophils % 1 %; Eosinophils # (M) 0.16 k/uL (0-0.7); Lymphocytes # (M) 2.18 k/uL (1.0-4.8); Metamyelocytes # (M) 0.04 k/uL (0); Metamyelocytes % 1 %; Monocytes # (M) 0.51 k/uL (0-1.0); Neutrophils % (M) 28 %; Nucleated Red Blood Cells 0 /100 WBC (0-0); Total Cells Counted 200
[2020-09-28] MEDS: HEPARIN SODIUM,PORCINE/PF 5,000 UNIT/0.5 ML SYRINGE SQ SCH ×2 (08:56→09:00)
[2020-09-28] MEDS: KETOROLAC 0.5% OPHTH DROPS 5 ML BTL BOTH EYES SCH (08:57)
[2020-09-28] MEDS: ARTIFICIAL TEARS-HYPROMELLOSE DROPS 15 ML BTL BOTH EYES SCH (08:57)
[2020-09-28 09:08] VITALS: BP 108/50; PULSE 69; RESP 18
[2020-09-28] MEDS: CYANOCOBALAMIN 500 MCG TAB PO SCH (09:19)
[2020-09-28 13:48] LABS: Hemoglobin A1C 7.4 % (4.0-6.0)
--- NOTE | 2020-09-28 15:58 | P.DS ---
Providers Date of admission: 09/27/20 08:35 Attending physician: Roselia Hoffmann MD Consults: 09/24/20 19:29 Consult Physician Routine Consulting Provider: Clifford Shaikh Consult Reason/Comments: Abdominal pain fever Do you want consulting provider notified?: Already Contacted Primary care physician: Aishwarya Camron [facility] Course: 48-year-old female came in with abdominal pain at that time patient was constipated apparently was across patient resolved her abdominal pain continued as per the patient. Patient had abdominal CT scan which was within normal limits and patient the also had a pelvic ultrasound which showed fibroid. Fibroid is probably not contributing to the abdominal pain patient was evaluated by general surgery who doesn't believe that patient has a diverticulitis. Patient was on Zosyn. Patient had leukocytosis, urine analysis was mildly abnormal but not impressive for UTI but patient was believed to have urinary tract infection was treated for that and completed antibiotic course for you urinary tract infection urine cultures also were negative. My impression is patient may have had mild colitis may be infectious or noninfectious from constipation which was not evident on the computed tomography scan of the abdomen. Patient received 3 days of antibiotics had abdominal pain completely resolved and I do not believe patient will need to further continue her antibiotics and the patient will be discharged today. was also on hydrochlorothiazide patient blood pressure is low normal with the systolic blood pressure going down to as low as 100 because of which will risk and U hydrochlorothiazide. PHYSICAL EXAMINATION: GENERAL: The patient is alert and oriented x3, not in any acute distress. Well developed, well nourished. HEENT: Pupils are round and equally reacting to light. EOMI. No scleral icterus. No conjunctival pallor. Normocephalic, atraumatic. No pharyngeal erythema. No thyromegaly. CARDIOVASCULAR: S1 and S2 present. No murmurs, rubs, or gallops. PULMONARY: Chest is clear to auscultation, no wheezing or crackles. ABDOMEN: Soft, nontender, nondistended, normoactive bowel sounds. No palpable organomegaly. MUSCULOSKELETAL: No joint swelling or deformity. EXTREMITIES: No cyanosis, clubbing, or pedal edema. NEUROLOGICAL: Gross neurological examination did not reveal any focal deficits. SKIN: No rashes. -Abdominal pain secondary to mild colitis and constipation resolved at this time will not require any antibiotics -No evidence of urinary tract infection -Leukocytosis reactive secondary to abdominal pain. No other evidence of infection at this time patient will not be discharged any acute other antibiotics. For rest of the other medical problems and has physician course please refer to progress note are H&P from Dr. Zamora. Patient Condition at Discharge: Stable Plan - Discharge Summary Discharge Rx Participant: No New Discharge Prescriptions: Continue Amitriptyline HCl 50 mg PO HS Icb-Qksh-Sylzi Acid [-U Capsule (formulary)] 1 cap PO DAILY Cholecalciferol [Vitamin D3 (25 Mcg = 1000 Iu)] 25 mcg PO HS Carboxymethylcell/Glycerin/Pf [Refresh Relieva Pf 0.5-1% Drop] 1 drop BOTH EYES TID Aspirin EC [Ecotrin Low Dose] 81 mg PO HS INSULIN ASPART (NovoLOG) [NovoLOG (formulary)] See Protocol SQ AC-TID Insulin Degludec [Tresiba Flextouch U-100] 50 units SQ HS Cyanocobalamin (Vitamin B-12) [Vitamin B-12] 1,000 mcg PO DAILY Ketorolac 0.5% Ophth Soln [Acular 0.5%] 1 drops BOTH EYES DAILY Omeprazole 20 mg PO DAILY PRN PRN Reason: Gi Upset Latanoprost/Pf [Latanoprost 0.005% Eye Drop] 1 drop BOTH EYES HS Turmeric Root Extract [Turmeric] 500 mg PO DAILY Discontinued hydroCHLOROthiazide [Hydrodiuril] 12.5 mg PO HS Discharge Medication List Amitriptyline HCl 50 mg PO HS 06/16/15 [History] Aspirin EC [Ecotrin Low Dose] 81 mg PO HS 09/24/20 [History] Carboxymethylcell/Glycerin/Pf [Refresh Relieva Pf 0.5-1% Drop] 1 drop BOTH EYES TID 09/24/20 [History] Cholecalciferol [Vitamin D3 (25 Mcg = 1000 Iu)] 25 mcg PO HS 09/24/20 [History] Cyanocobalamin (Vitamin B-12) [Vitamin B-12] 1,000 mcg PO DAILY 09/24/20 [History] INSULIN ASPART (NovoLOG) [NovoLOG (formulary)] See Protocol SQ AC-TID 09/24/20 [History] Insulin Degludec [Tresiba Flextouch U-100] 50 units SQ HS 09/24/20 [History] Ketorolac 0.5% Ophth Soln [Acular 0.5%] 1 drops BOTH EYES DAILY 09/24/20 [History] Latanoprost/Pf [Latanoprost 0.005% Eye Drop] 1 drop BOTH EYES HS 09/24/20 [History] Omeprazole 20 mg PO DAILY PRN 09/24/20 [History] Fgo-Ayip-Spreh Acid [-U Capsule (formulary)] 1 cap PO DAILY 09/24/20 [History] Turmeric Root Extract [Turmeric] 500 mg PO DAILY 09/24/20 [History] Follow up Appointment(s)/Referral(s): Aishwarya Lyon MD [Primary Care Provider] - 09/30/20 12:00 pm Activity/Diet/Wound Care/Special Instructions: Regular diet as tolerated. drink fluids. activity as tolerated. follow up with your family doctor. call your Dr for return or worsening of the symptoms that brought you here or any concerns. Discharge Disposition: HOME SELF-CARE
--- NOTE | 2020-10-18 16:06 | CDI ---
Documentation Clarification Form Date: 10/18/2020 03:40:42 PM From: Jennyfer Saucedo RN CCDS Admit Date: 09/27/2020 08:35:00 AM Patient Name: Renate Tang Visit Number: [id number] Discharge Date: 09/28/2020 12:30:00 PM ATTENTION: The Clinical Documentation Specialists (CDI) and [facility] Coding Staff appreciate your assistance in clarifying documentation. Please respond to the clarification below the line at the bottom and electronically sign. The CDI & [facility] Coding staff will review the response and follow-up if needed. Please note: Queries are made part of the Legal Health Record. If you have any questions, please contact the author of this message via ITS. Dr. Fercho Aragon, Sepsis is documented H&P 09/24 and Medicine progress notes 09/25, 09/26 & 09/27 but is not noted in subsequent documentation. Clarification is requested. History/Risk Factors: 74-year-old female presents to the ED with left lower abdominal pain for several days with a fever. Medical history: DM and HTN. HP 09/24. Clinical Indicators: VSS 09/24 B/P 147/70, HR 100, Temp 103.0 F Oral, RR 18, SpO2 97% room air. Labs: 09/24 Wbc 4.6; Lymphocytes 0.7; UA appearance cloudy, Leukocyte Esterase Large, Wbc 27. Lower abdominal pain with acute urinary tract infection with present on admission with early sepsis. H&P 09/24 and Medicine progress notes 09/25, 09/26 & 09/27. On computed tomography scan there is no acute intra-abdominal abnormality seen. No plans for any surgical intervention no sign of diverticulitis. Antibiotics per primary for UTI. Surgical consult 09/25 Treatment: 09/24 Zosyn 3.375gm IVPB x 1; 09/25 Zosyn 3.375gm IVPB Q8H RESHMA d/c 09/28. 09/24 0.9NS 1L bolus x 1; 09/24 0.9NS 75cc/hr d/c 09/26. Please clarify if the [insert diagnosis] is: [ ] Sepsis secondary to UTI confirmed, resolved [ x ] Sepsis ruled out [ ] Other condition, please specify [ ] Unable to determine (Template Last Revised: May 2020) I cannot speak for other physician's documentation and impression was clear in my note MTDD
== END 2020-09-28 12:30 | disposition home or self-care (01) | DRG 392 ==
LOC: EC 17:04 → 6NMEDSUR 19:30 → OBSVTOIN 09-27 08:35 → 6PED 09-27 20:44
PROVIDERS: ADMIT Internal Medicine; ATTEND Internal Medicine
DX: K52.9 Noninfective gastroenteritis and colitis, unspecified (principal); E87.1 Hypo-osmolality and hyponatremia; D61.818 Other pancytopenia; E46 Unspecified protein-calorie malnutrition; K59.00 Constipation, unspecified; Z20.822 Contact with and (suspected) exposure to COVID-19; E11.9 Type 2 diabetes mellitus without complications; E78.5 Hyperlipidemia, unspecified; E83.42 Hypomagnesemia; I10 Essential (primary) hypertension; K21.9 Gastro-esophageal reflux disease without esophagitis; Z79.4 Long term (current) use of insulin; M48.061 Spinal stenosis, lumbar region without neurogenic claudication; M79.7 Fibromyalgia; R74.01 Elevation of levels of liver transaminase levels; M54.9 Dorsalgia, unspecified; M54.2 Cervicalgia; R10.84 Generalized abdominal pain; K44.9 Diaphragmatic hernia without obstruction or gangrene; E86.0 Dehydration; Z90.49 Acquired absence of other specified parts of digestive tract; Z87.891 Personal history of nicotine dependence; Z87.442 Personal history of urinary calculi; Z87.440 Personal history of urinary (tract) infections; Z83.3 Family history of diabetes mellitus; Z82.49 Family history of ischemic heart disease and other diseases of the circulatory system; Z80.0 Family history of malignant neoplasm of digestive organs; Z68.24 Body mass index [BMI] 24.0-24.9, adult
CPT/HCPCS: 36415; 74177; 80048; 80053; 81001; 82150; 83036; 83605; 83690; 83735; 85025; 85610; 85730; 87040; 87086; 87635; 96361; 96365; 99285

== ENCOUNTER → 2023-12-10 | Outpatient (CLI) | payer MEDICARE, OTHER ==
[2023-12-10 14:56] LABS: African American GFR (CKD) >90 (>60 ml/min/1.73 sqM); Blood Urea Nitrogen 10 mg/dL (7-17); Non-African American GFR(CKD) 85 (>60 ml/min/1.73 sqM)
--- NOTE | 2023-12-11 19:05 | CT ---
EXAMINATION TYPE: CT abdomen pelvis w con DATE OF EXAM: 12/10/2023 COMPARISON: 09/24/2020 INDICATION: ABNORMAL COLONOSCOPY DLP: 836.6 mGycm, Automated exposure control for dose reduction was used. CONTRAST: 100 mL of Isovue 300. Study performed with Oral Contrast TECHNIQUE: Axial images were obtained from above the diaphragm to the pubic rami in the axial plane a t 5 mm thick sections. Reconstructed images are reviewed on the computer in the coronal plane. FINDINGS: Limited CT sections are obtained the lung bases. The lung bases are clear. CT ABDOMEN: Liver: There is mild fatty infiltration liver. 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 Gallbladder: Not visualized. Kidneys: No masses are evident. There is a cyst on the lateral right kidney measuring 1.9 cm in -3 [place] unit. Some mild hydronephrosis on the right may be present. No hydroureter is evident. This could be related to an extrarenal pelvis. No suspicious renal stones evident. Aorta: Normal Inferior vena cava: Normal. CT PELVIS: Loops of bowel within the abdomen and pelvis are normal. Scattered diverticuli are present. There are loops of bowel which are incompletely distended or lack oral contrast limiting their evaluation. Appendix: Normal as visualized. Urinary bladder: Normal. Genitourinary structures: Uterus is normal. Adnexa are unremarkable. Osseous structures: No suspicious lytic or sclerotic lesions. IMPRESSION: 1. No obvious mass identified within the colon. The colon is nondistended with oral contrast. 2. No suspicious changes to suggest metastatic disease. 3. Scattered diverticuli within the distal sigmoid colon. No acute diverticulitis evident. 4. Correlate with the colonoscopy results.
== END | disposition home or self-care (01) ==
LOC: RADCTMAIN 14:05
PROVIDERS: ATTEND Surgery
DX: R93.3 Abnormal findings on diagnostic imaging of other parts of digestive tract
CPT/HCPCS: 36415; 74177; 82565; 84520